=== PATIENT | female | born 1940 | race Caucasian/White ===

== ENCOUNTER → 2016-12-14 | Outpatient (CLI) | payer OTHER, BC ==
[~2016-12-14] MED LIST: ASPIRIN EC81 M1 PO
== END ==
LOC: ULTRA 09:49
DX: E04.2 Nontoxic multinodular goiter (principal); E03.9 Hypothyroidism, unspecified

== ENCOUNTER → 2020-02-03 | Outpatient (CLI) | payer OTHER, BC | LOC: ULTRA 08:49 | PROVIDERS: ATTEND Otolaryngology | DX: E04.1 Nontoxic single thyroid nodule (principal); E07.89 Other specified disorders of thyroid ==

== ENCOUNTER → 2021-05-30 | Outpatient (CLI) | payer OTHER, BC ==
[~2021-05-30] VITALS: Ht 152.4 cm; Wt 59.0 kg
[~2021-05-30] MED LIST changes: +CITRACAL-VIT D1 EAC2 PO; +CLARITIN10 M3 PO; +CO Q-10100 M1 PO; +COREG3.125 MG PO; +FISH OIL 1,0001 EAC9 PO; +FOSAMAX 70 MG T70 MG PO; +GARLIC400 MG PO; +HYDROCHLOROTH12.5 M2 PO; +LIPITOR20 MG PO; +MULTI VITAMIN1 EACH PO; +PROTONIX40 M4 PO; +SUPER B MAXI C0.4 MG PO; +VITAMIN C500 M1 PO
--- NOTE | 2021-06-01 16:06 | PATH ---
[facility] [place] [address] PATHOLOGY RPT PROCEDURE Name: ELENAELENITAROSANGELA J Room #: REG ERIN Schwartz.#: [id number] Admission: 05/30/21 Date of : 40 Discharge: Report #: [id number] Path Case #: [id number] [facility] Accession Number: [id number] . 01 Material submitted: . PART A: gastrointestinal site - RANDOM GASTRIC BX - R/O H. PYLORI PART B: esophagus - RANDOM ESOPHAGEAL BX - R/O EOSINOPHILIC ESOPHAGITIS . 01 Clinical history: . EGD DYSPHAGIA GASTRITIS . 02 Diagnosis: . A. Gastric mucosa, random gastric, biopsy: - Focal mild active chronic gastritis. - H. pylori immunohistochemical stain is negative. . B. Squamous epithelium and scant gastric epithelium, random esophageal, biopsy: - Squamous epithelium with focal slight increase in intraepithelial lymphocytes and mild reactive changes. - There is no evidence of eosinophilic esophagitis. - Scant gastric foveolar epithelium with no diagnostic abnormalities. (SCA:pit; 06/01/2021) QTP 06/01/2021 1202 Local . 02 Electronically signed: . Luis Gleason DO, Pathologist NPI- [id number] . 01 Gross description: . A. The specimen is received in formalin designated "Rosangela Padilla, random gastric BX-R/O H. pylori" and consists of multiple canas irregular tissues aggregating 0.9 x 0.6 x 0.3 cm which are submitted in toto in A1. . B. The specimen is received in formalin designated "Rosangela Padilla, random esophageal BX-R/O eosinophilic esophagitis" and consists of multiple canas irregular tissues aggregating 0.5 x 0.4 x 0.1 cm in aggregate which are filtered and submitted in toto in B1. ([place]; 05/31/2021) DKA/DKA 05/31/2021 1647 Local . 02 Pathologist provided ICD-10: K29.50, R13.10 . 02 CPT . [address] [address] PATHOLOGY RPT PROCEDURE Name: ROSANGELA PADILLA J Room #: REG [facility] Reilly#: [id number] Admission: 05/30/21 Date of : 40 Discharge: Report #: [id number] Path Case #: [id number] Specimen Comment: A courtesy copy of this report has been sent to [phone] Specimen Comment: [phone] Specimen Comment: Report sent to / DR MICHEL [facility]formed [facility]: [facility] [address] [id number] MD Marcelino Tian MD Phone: [phone] Performed at: 02 [facility] [address] [id number] MD Massimo Herrera MD Phone: [phone]
== END | disposition home or self-care (01) ==
LOC: GI 08:28
PROVIDERS: ATTEND Internal Medicine Gastroenterology
DX: R13.10 Dysphagia, unspecified (principal); K29.50 Unspecified chronic gastritis without bleeding; K21.9 Gastro-esophageal reflux disease without esophagitis; I10 Essential (primary) hypertension; E78.00 Pure hypercholesterolemia, unspecified; M10.9 Gout, unspecified; M19.90 Unspecified osteoarthritis, unspecified site; Z98.890 Other specified postprocedural states; Z79.899 Other long term (current) drug therapy; Z20.822 Contact with and (suspected) exposure to COVID-19; Z85.828 Personal history of other malignant neoplasm of skin
CPT/HCPCS: 62110; 62900